=== PATIENT | male | born 1930 | race Caucasian/White ===

== ENCOUNTER 2017-07-09 12:10 | Emergency (ER) | payer OTHER ==
[~2017-07-09] VITALS: Ht 167.6 cm; Wt 40.8 kg
[~2017-07-09 12:10] MED LIST: ACETAMINOPHEN650 MG PO; ASPI81CH; ATOR10 PO; BICARSIM80 MG; CEPH500 PO; CLOP75 PO; DILT180 PO; MEGE40SU; NYST100TO; PROZAC20 MG PO; Prozac20 MG PO; QUET100 PO; QUET25 PO; SULTRIDS PO; Senna8.6 MG PO
[2017-07-09] MEDS ORDERED: MIRALAX17 GM PO (12:35)
[2017-07-09] MEDS ORDERED: QUET25 PO (12:36)
[2017-07-09] MEDS ORDERED: CHOL10002 PO (12:37)
== END 2017-07-09 14:36 | disposition home or self-care (01) ==
LOC: ER 12:10
DX: R06.03 Acute respiratory distress (principal); J98.8 Other specified respiratory disorders; F03.90 Unspecified dementia, unspecified severity, without behavioral disturbance, psychotic disturbance, mood disturbance, and anxiety; Z66 Do not resuscitate; F32.9 Major depressive disorder, single episode, unspecified; G47.00 Insomnia, unspecified; E78.5 Hyperlipidemia, unspecified; Z88.0 Allergy status to penicillin; Z86.73 Personal history of transient ischemic attack (TIA), and cerebral infarction without residual deficits; Z79.899 Other long term (current) drug therapy
CPT/HCPCS: 71045; 93005; 93010; 99283